=== PATIENT | female | born 1975 | race Caucasian/White ===

== ENCOUNTER → 2020-07-18 | Outpatient (CLI) | payer BC | LOC: RAD 22:59 | DX: R05 Cough (principal); R50.9 Fever, unspecified | CPT/HCPCS: 71046 ==

== ENCOUNTER → 2020-08-21 | Outpatient (CLI) | payer BC ==
[2020-08-21 08:54] LABS: HEMOGLOBIN 13.5 gm/dl (12.3-15.3); RED BLOOD COUNT 4.34 M/UL (4.00-5.10); WHITE BLOOD COUNT 6.7 K/UL (4.5-11.0)
[2020-08-21 09:38] LABS: BUN/CREATININE RATIO 27 (0-10)
== END ==
LOC: OPSV2 07:32
PROVIDERS: Orthopaedic Surgery
DX: Z01.818 Encounter for other preprocedural examination (principal); M65.30 Trigger finger, unspecified finger; F41.0 Panic disorder [episodic paroxysmal anxiety]; R73.03 Prediabetes; I34.1 Nonrheumatic mitral (valve) prolapse
CPT/HCPCS: 36415; 80048; 85025; 93005

== ENCOUNTER → 2021-03-26 | Outpatient (CLI) | payer OTHER ==
[~2021-03-26] MED LIST: HYDROCODON-ACE1 EAC6 PO
[2021-03-26 23:13] LABS: HEMOGLOBIN 13.3 gm/dl (12.3-15.3); RED BLOOD COUNT 4.25 M/UL (4.00-5.10); WHITE BLOOD COUNT 5.9 K/UL (4.5-11.0)
[2021-03-26 23:38] LABS: BUN/CREATININE RATIO 18 (0-10)
== END ==
LOC: LAB 22:24
PROVIDERS: Family Medicine
DX: R10.9 Unspecified abdominal pain (principal)
CPT/HCPCS: 80053; 81001; 85027

== ENCOUNTER 2021-03-27 00:23 | Emergency (ER) | payer BC ==
[2021-03-27] MEDS ORDERED: HYDROCODON-ACE1 EAC6 PO (00:28)
== END 2021-03-27 00:47 | disposition home or self-care (01) ==
LOC: ER1 00:23
DX: R10.9 Unspecified abdominal pain (principal); R10.819 Abdominal tenderness, unspecified site; Z90.49 Acquired absence of other specified parts of digestive tract; Z87.442 Personal history of urinary calculi
CPT/HCPCS: 99284

== ENCOUNTER → 2021-09-11 | Outpatient (CLI) | payer BC | LOC: CT 03:52 | DX: R10.9 Unspecified abdominal pain (principal); N20.0 Calculus of kidney ==